=== PATIENT | female | born 1970 | race Caucasian/White ===

== ENCOUNTER 2017-12-22 05:07 | Emergency (ER) | payer MEDICAID ==
[~2017-12-22] VITALS: Ht 160 cm; Wt 74.8 kg
[2017-12-22 05:13] VITALS: Ht 160 cm; Wt 74.8 kg
[2017-12-22 06:14] LABS: CALCIUM 8.4 mg/dL (8.5-10.1); CARBON DIOXIDE 27.9 mmol/L (21-32); CHLORIDE SERUM 107 mmol/L (98-107); CREATININE SERUM 0.8 mg/dL (0.6-1.0); GFR1 > 60 mL/min; GLUCOSE SERUM 98 mg/dL (74-106); POTASSIUM SERUM 4.4 mmol/L (3.5-5.1); SODIUM SERUM 140 mmol/L (136-145)
[2017-12-22 06:23] LABS: BASOPHIL % 0.3 % (0-2); PLATELET COUNT 252 x10^3mcL (130-400)
[2017-12-22 06:24] LABS: RED CELL DISTRIBUTION WIDTH 14.7 % (11.5-14.5)
[2017-12-22 08:58] VITALS: BP 116/68
== END 2017-12-22 08:58 | disposition home or self-care (01) ==
LOC: ED 05:07
PROVIDERS: Emergency Medicine
DX: N93.9 Abnormal uterine and vaginal bleeding, unspecified (principal); D25.9 Leiomyoma of uterus, unspecified; Z88.0 Allergy status to penicillin
CPT/HCPCS: 36415